=== PATIENT | female | born 2000 | race Caucasian/White ===

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

== ENCOUNTER 2018-08-02 16:43 | Emergency (ER) | payer BC ==
--- NOTE | 2018-08-02 19:26 | ER Document Report ---
ED Neck/Back Problem - General Chief Complaint: Back Pain Stated Complaint: BACK PAIN Time Seen by Provider: 08/02/18 17:37 Mode of Arrival: Ambulatory Information source: Patient Notes: 18-year-old female presented to ED for complaint of bilateral flank pain with pain with any movement. Stated she could hardly walk but was moving around freely in the bed rolling around jumped up when I asked her could she sit on the side of the bed. Patient states is been hurting since yesterday. She states she did have some discomfort with urination. Patient alert oriented respirations regular and unlabored speaking in full sentences walks with a even steady gait. TRAVEL OUTSIDE OF THE [place] IN LAST 30 DAYS: No - HPI Patient complains to provider of: Pain - Bilateral flank. No: Injury Onset: Yesterday Onset: Gradual Timing: Still present Quality of pain: Achy, Cramping Severity: Severe Pain Level: 5 Recent injury: No Associated symptoms: Other - Bilateral flank pain Exacerbated by: Movement of neck, Movement of trunk, Sitting position Relieved by: Nothing Similar symptoms previously: Yes Recently seen / treated by doctor: No - Related Data Allergies/Adverse Reactions: No Known Allergies Allergy (Unverified 10/05/16 01:44) Past Medical History - General Information source: Patient - Social History Smoking Status: Current Every Day Smoker Cigarette use (# per day): Yes - Pack per day Chew tobacco use (# tins/day): No Smoking Education Provided: Yes - 4 minutes Frequency of alcohol use: None Drug Abuse: Marijuana 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 Lives with: Friend Family History: Reviewed & Not Pertinent Patient has suicidal ideation: No Patient has homicidal ideation: No - Past Medical History Cardiac Medical History: Reports: None Pulmonary Medical History: Reports: None EENT Medical History: Reports: None Neurological Medical History: Reports: None Endocrine Medical History: Reports: None Renal/ Medical History: Reports: None Malignancy Medical History: Reports: None GI Medical History: Reports: None Musculoskeletal Medical History: Reports None Skin Medical History: Reports None Psychiatric Medical History: Reports: None Traumatic Medical History: Reports: None Infectious Medical History: Reports: None Surgical Hx: Negative Past Surgical History: Reports: None - Immunizations Immunizations up to date: Yes Hx Diphtheria, Pertussis, Tetanus Vaccination: Yes Review of Systems - Review of Systems Constitutional: No symptoms reported EENT: No symptoms reported Cardiovascular: No symptoms reported Respiratory: No symptoms reported Gastrointestinal: No symptoms reported Genitourinary: Dysuria, Frequency, Flank pain, Urgency Female Genitourinary: No symptoms reported Musculoskeletal: No symptoms reported Skin: No symptoms reported Hematologic/Lymphatic: No symptoms reported Neurological/Psychological: No symptoms reported -: Yes All other systems reviewed and negative Physical Exam - Vital signs Vitals: Temp Pulse Resp BP Pulse Ox 98.8 F 103 H 16 130/72 H 97 08/02/18 16:55 08/02/18 16:55 08/02/18 16:55 08/02/18 16:55 08/02/18 16:55 Interpretation: Normal - General General appearance: Appears well, Alert - HEENT Head: Normocephalic, Atraumatic Eyes: Normal Pupils: PERRL - Respiratory Respiratory status: No respiratory distress Chest status: Nontender Breath sounds: Normal Chest palpation: Normal - Cardiovascular Rhythm: Regular Heart sounds: Normal auscultation Murmur: No - Abdominal Inspection: Normal Distension: No distension Bowel sounds: Normal Tenderness: Tender - Suprapubic Organomegaly: No organomegaly - Back Back: Normal, Tender, CVA tenderness - Bilateral. No: Deformity/step-off, Vertebra tenderness, Scars, Scoliosis, Wounds - Extremities General upper extremity: Normal inspection, Nontender, Normal color, Normal ROM, Normal temperature General lower extremity: Normal inspection, Nontender, Normal color, Normal ROM, Normal temperature, Normal weight bearing. No: Douglas's sign - Neurological Neuro grossly intact: Yes Cognition: Normal Orientation: AAOx4 Rice Coma Scale Eye Opening: Spontaneous Rosalia Coma Scale Verbal: Oriented Rice Coma Scale Motor: Obeys Commands Rice Coma Scale Total: 15 Speech: Normal Motor strength normal: LUE, RUE, LLE, RLE Sensory: Normal - Psychological Associated symptoms: Normal affect, Normal mood - Skin Skin Temperature: Warm Skin Moisture: Dry Skin Color: Normal Course - Vital Signs Vital signs: Temp Pulse Resp BP Pulse Ox 98.8 F 103 H 16 130/72 H 97 08/02/18 16:55 08/02/18 16:55 08/02/18 16:55 08/02/18 16:55 08/02/18 16:55 Discharge - Discharge Clinical Impression: UTI (urinary tract infection) Qualifiers: Urinary tract infection type: acute cystitis Hematuria presence: without hematuria Qualified Code(s): N30.00 - Acute cystitis without hematuria Condition: Stable Disposition: HOME, SELF-CARE Instructions: Family Physicians / Practices Additional Instructions: URINARY TRACT INFECTION: Your evaluation indicates that you have a urinary tract infection. This is due to germs growing in the bladder. This is a common problem. This infection usually responds quickly to antibiotics. Your antibiotic should be taken exactly as prescribed. Drink plenty of fluids -- three to four quarts a day. Occasionally, a bladder anesthetic will be prescribed to help stop the feeling of urgency until the antibiotic has a chance to clear the infection. This may cause your urine to be dark orange. Certain urine infections require a culture. If the doctor obtained a culture, the results will be back in two days. You should call to see if a change in treatment is needed. A repeat urinalysis after you finish treatment is often recommended. The physician will let you know if further testing is required. Call the doctor if you develop fever, chills, flank pain, inability to urinate, or blood in the urine. ANTIBIOTIC THERAPY: You have been given an antibiotic prescription. It's important that you take all the medication, unless instructed otherwise by your physician. Failure to complete the entire course can result in relapse of your condition. Common side effects of antibiotics include nausea, intestinal cramping, or diarrhea. Women may develop vaginal yeast infections, and babies can get yeast (thrush) in the mouth following the use of antibiotics. Contact your physician if you develop significant side effects from this medication. Allergy to this antibiotic can result in hives, wheezing, faintness, or itching. If symptoms of allergy occur, stop the medication and call the doctor. NITROFURANTOIN (MACRODANTIN, MACROBID): You have received a prescription for nitrofurantoin (Macrodantin). This antibiotic is used for urinary tract infections. Women who are or nursing should notify the physician before taking this medicine. If you have ever had a problem caused by this medication in the past, be sure the physician is aware of it. Common side effects of this medicine include nausea, vomiting, or decreased appetite. Notify your physician if these side effects become severe. Immediately stop this medicine and call the physician if you develop cough, shortness of breath, chest pain, weakness, jaundice (yellow color of the skin and whites of the eyes), or a skin rash. Acetaminophen Acetaminophen may be taken for pain relief or fever control. It's much safer than aspirin, offering a wider range of "safe" dosages. It is safe during . Some brand names are Tylenol, Panadol, Datril, Anacin 3, Tempra, and Liquiprin. Acetaminophen can be repeated every four hours. The following are maximum recommended dosages: WEIGHT Dose Drops Elixir Chewable(80mg) (LBS.) drprs=droppers tsp=teaspoon 6 40 mg .4 ml (1/2) 6-11 80 mg .8 ml (full) 1/2 tsp 1 tab 12-16 120 mg 1 1/2 drprs 3/4 tsp 1 1/2 tabs 17-23 160 mg 2 drprs 1 tsp 2 tabs 24-30 240 mg 3 drprs 1 1/2 tsp 3 tabs 30-35 320 mg 2 tsp 4 tabs 36-41 360 mg 2 1/4 tsp 4 1/2 tabs 42-47 400 mg 2 1/2 tsp 5 tabs 48-53 480 mg 3 tsp 6 tabs 54-59 520 mg 3 1/4 tsp 6 1/2 tabs 60-64 560 mg 3 1/2 tsp 7 tabs 65-70 600 mg 3 3/4 tsp 7 1/2 tabs 71-76 640 mg 4 tsp 8 tabs 77-82 720 mg 4 1/2 tsp 9 tabs 83-88 800 mg 5 tsp 10 tabs >89 pounds or adults 650 mg to 900 mg Acetaminophen can be repeated every four hours. Maximum daily dose not to exceed 4000 mg. These maximum recommended dosages are slightly higher than the dosages written on the product container, but these dosages are very safe and well below the toxic dosage for acetaminophen. Ibuprofen Ibuprofen is an excellent, safe drug for pain control. In addition, it has potent antiinflammatory effects which are beneficial, especially in the treatment of injuries, arthritis, or tendonitis. It's best to take ibuprofen with food. Persons with ulcer disease or allergy to aspirin should notify their physician of this before taking ibuprofen. Take the medication exactly as prescribed. Don't take additional doses unless instructed to do so by your doctor. If you develop wheezing, shortness of breath, hives, faintness, stomach pain, vomiting, or dark black stools, return for re-evaluation at once. FOLLOW-UP CARE: If you have been referred to a physician for follow-up care, call the physicians office for an appointment as you were instructed or within the next two days. If you experience worsening or a significant change in your symptoms, notify the physician immediately or return to the Emergency Department at any time for re-evaluation. Prescriptions: Nitrofurantoin/Nitrofuran Mac [Macrobid 100 mg Capsule] 1 tab PO BID #14 capsule Forms: Elevated Blood Pressure, Smoking Cessation Education, Return to Work
[2018-08-02 19:36] VITALS: BP 108/65
[2018-08-02 19:46] LABS: APPEARANCE,URINE SLIGHTLY-CLOUDY; BILIRUBIN,URINE NEGATIVE (NEGATIVE); COLOR,URINE YELLOW; GLUCOSE, URINE NEGATIVE (NEGATIVE); KETONES,URINE NEGATIVE (NEGATIVE); LEUKOCYTE ESTERASE,URINE TRACE (NEGATIVE); NITRITE,URINE POSITIVE (NEGATIVE); PROTEIN,URINE NEGATIVE (NEGATIVE); URINE SPECIFIC GRAVITY 1.017; UROBILINOGEN,URINE NEGATIVE mg/dL (<2.0)
== END 2018-08-02 19:36 | disposition home or self-care (01) ==
LOC: ER 16:43
DX: N30.00 Acute cystitis without hematuria (principal); F17.210 Nicotine dependence, cigarettes, uncomplicated; Z71.6 Tobacco abuse counseling; F12.10 Cannabis abuse, uncomplicated
CPT/HCPCS: 81001; 81025; 87086; 87088; 87186; 99283; 99406

== ENCOUNTER 2019-01-04 15:48 | Observation (INO) | payer BC ==
[2019-01-04 16:47] LABS: ABSOLUTE BASOPHILS # (AUTO) 0.1 10^3/uL (0.0-0.2); ABSOLUTE EOSINOPHILS # (AUTO) 0.1 10^3/uL (0.0-0.6); ABSOLUTE LYMPHOCYTES (AUTO) 1.9 10^3/uL (0.5-4.7); ABSOLUTE MONOCYTES (AUTO) 0.7 10^3/uL (0.1-1.4); BASOPHILS % (AUTO) 0.6 % (0-2); EOSINOPHILS % (AUTO) 1.3 % (0-6); HEMATOCRIT 33.4 % (36.0-47.0); HEMOGLOBIN 11.4 g/dL (12.0-15.5); LYMPHOCYTES % (AUTO) 16.3 % (13-45); MEAN CORPUSCULAR HEMOGLOBIN 29.6 pg (27.0-33.4); MEAN CORPUSCULAR HGB CONC 34.2 g/dL (32.0-36.0); MEAN CORPUSCULAR VOLUME 87 fl (80-97); MONOCYTES % (AUTO) 5.7 % (3-13); PLATELET COUNT 242 10^3/uL (150-450); RED BLOOD COUNT 3.86 10^6/uL (3.72-5.28); RED CELL DISTRIBUTION WIDTH 14.3 % (11.5-14.0); SEGMENTED NEUTROPHILS % (AUTO) 76.1 % (42-78); TOTAL CELLS COUNTED % (AUTO) 100 %; WHITE BLOOD COUNT 11.9 10^3/uL (4.0-10.5)
[2019-01-04] MEDS: RINGERS SOLUTION,LACTATED 1,000 ML IV PRN (17:44)
[2019-01-04] MEDS: CEFTRIAXONE 1 GM/D5W RTU 1 GM/50 ML RTUPB IV SCH (17:44)
[2019-01-04] MEDS: PRENATAL VITAMIN W DHA CAPSULE PO SCH (17:44)
[2019-01-04 18:29] LABS: APPEARANCE,URINE CLOUDY; BILIRUBIN,URINE NEGATIVE (NEGATIVE); COLOR,URINE AMBER; GLUCOSE, URINE NEGATIVE (NEGATIVE); KETONES,URINE TRACE mg/dL (NEGATIVE); LEUKOCYTE ESTERASE,URINE SMALL (NEGATIVE); NITRITE,URINE POSITIVE (NEGATIVE); PROTEIN,URINE NEGATIVE (NEGATIVE)
[2019-01-04] MEDS: ACETAMINOPHEN 325 MG TABLET PO PRN (20:50)
[2019-01-05] MEDS: CEFTRIAXONE 1 GM/D5W RTU 1 GM/50 ML RTUPB IV SCH ×2 (05:18→17:59)
--- NOTE | 2019-01-05 10:06 | PDOC PROGRESS REPORT ---
Subjective Progress Note for:: 01/05/19 Subjective:: She states she is feeling much better. Reason For Visit: PYLONEPHRITIS Physical Exam - Physical Exam Vital Signs: Temp Pulse Resp BP Pulse Ox 98.1 F 66 12 109/62 100 01/05/19 07:37 01/05/19 07:37 01/05/19 07:37 01/05/19 07:37 01/05/19 07:37 Intake & Output 01/04/19 01/05/19 01/06/19 06:59 06:59 06:59 Intake Total 50 Output Total 200 Balance -150 Weight 77.7 kg General appearance: PRESENT: no acute distress, well-developed, well-nourished Musculoskeletal exam: PRESENT: other - Her CVA tenderness on the right is much improved from yesterday's exam Result Laboratory Results: 01/04/19 16:40 01/04/19 01/04/19 16:40 17:59 WBC 11.9 H RBC 3.86 Hgb 11.4 L Hct 33.4 L MCV 87 MCH 29.6 MCHC 34.2 RDW 14.3 H Plt Count 242 Seg Neutrophils % 76.1 Urine Color LEENA Urine Appearance CLOUDY Urine pH 6.0 Ur Specific [place] 1.020 Urine Protein NEGATIVE Urine Glucose (UA) NEGATIVE Urine Ketones TRACE H Urine Blood NEGATIVE Urine Nitrite POSITIVE H Ur Leukocyte Esterase SMALL H Urine WBC (Auto) 9 Urine RBC (Auto) 2 Impressions: She is day 1 of antibiotics and improved after 2 doses Assessment & Plan - Diagnosis (1) Pyelonephritis affecting in second trimester Is this a current diagnosis for this admission?: Yes - Plan Summary Plan Summary: Plan to continue antibiotics and discharge home after her morning dose of antibiotics tomorrow.
[2019-01-05] MEDS: PRENATAL VITAMIN W DHA CAPSULE PO SCH (10:58)
[2019-01-05] MEDS: RINGERS SOLUTION,LACTATED 1,000 ML IV PRN (10:58)
[2019-01-05] MEDS: ACETAMINOPHEN 325 MG TABLET PO PRN ×2 (11:03→18:01)
[2019-01-06] MEDS ORDERED: CEFAZOLIN 1 GM/D5W RTU 0 GM/0 ML RTUPB IV ONE (06:19)
[2019-01-06] MEDS ORDERED: CEFTRIAXONE 1 GM/D5W RTU 1 GM/50 ML RTUPB IV ONE (06:55)
[2019-01-06] MEDS: CEFTRIAXONE 1 GM/D5W RTU 1 GM/50 ML RTUPB IV SCH (07:10)
[2019-01-06] MEDS: PRENATAL VITAMIN W DHA CAPSULE PO SCH (10:49)
[2019-01-06 11:27] VITALS: BP 117/58
--- NOTE | 2019-01-06 14:55 | PDOC DISCHARGE SUMMARY ---
Final Diagnosis Discharge Date: 01/06/19 - Final Diagnosis (1) Pyelonephritis affecting in second trimester Is this a current diagnosis for this admission?: Yes Discharge Data - Discharge Medication Home Medications: No122/Iron/Folic Acid [ Multi Tablet] 1 tab PO DAILY 10/05/16 Acetaminophen [Tylenol 325 mg Tablet] 975 mg PO Q6HP PRN tablet 01/06/19 Reason(s) for Admission: Other - pyelonephritis Procedures: Ultrasound - Diagnosis Test Laboratory: Temp Pulse Resp BP Pulse Ox 98.2 F 64 18 117/58 L 100 01/06/19 11:14 01/06/19 11:14 01/06/19 11:14 01/06/19 11:14 01/06/19 11:14 01/04/19 16:40 RBC 3.86 Hgb 11.4 L Hct 33.4 L - Discharge information/Instructions Discharge Activity: Other - discussed with patient during rounds Discharge Diet: As Tolerated, Regular Disposition: HOME, SELF-CARE Follow up with: [facility] in: 2, Weeks
== END 2019-01-06 15:30 | disposition home or self-care (01) ==
LOC: 2S 15:48 → INTOOBSV 15:48
PROVIDERS: ADMIT Obstetrics & Gynecology; ATTEND Obstetrics & Gynecology
DX: O23.02 Infections of kidney in pregnancy, second trimester (principal); O99.332 Smoking (tobacco) complicating pregnancy, second trimester; F17.210 Nicotine dependence, cigarettes, uncomplicated
CPT/HCPCS: 36415; 87086; 85025; 87088; 81001; 87186; G0378 ×3; J7120 ×2; J0696 ×3; J3490 ×3; J0690

== ENCOUNTER 2019-06-10 02:30 | Inpatient (IN) | payer BC ==
[2019-06-10] MEDS ORDERED: OXYTOCIN 10 UNIT/ML VIAL ONE (03:02)
[2019-06-10] MEDS ORDERED: MISOPROSTOL 0.2 MG TABLET ONE (03:02)
[2019-06-10] MEDS ORDERED: OXYTOCIN/NORMAL SALINE 0 UNIT/0 ML RTUINJ ONE (03:02)
[2019-06-10] MEDS ORDERED: LIDOCAINE 1% INJ-PF (10 MG/ML) 30 ML SDV ONE (03:02)
[2019-06-10 03:10] LABS: APPEARANCE,URINE SLIGHTLY-CLOUDY; BILIRUBIN,URINE NEGATIVE (NEGATIVE); COLOR,URINE YELLOW; GLUCOSE, URINE NEGATIVE (NEGATIVE); KETONES,URINE NEGATIVE (NEGATIVE); LEUKOCYTE ESTERASE,URINE TRACE (NEGATIVE); NITRITE,URINE NEGATIVE (NEGATIVE); PROTEIN,URINE NEGATIVE (NEGATIVE); URINE SPECIFIC GRAVITY 1.008; UROBILINOGEN,URINE NEGATIVE mg/dL (<2.0)
[2019-06-10] MEDS ORDERED: PROMETHAZINE HCL 25 MG SUPP.RECT PR PRN (03:16)
[2019-06-10] MEDS ORDERED: ACETAMINOPHEN WITH CODEINE #3 TABLET PO PRN (03:16)
[2019-06-10] MEDS ORDERED: ACETAMINOPHEN 650 MG SUPP.RECT PR PRN (03:16)
[2019-06-10] MEDS ORDERED: MEASLES,MUMPS&RUBELLA VACC/PF 0.5 ML VIAL SUBCUT PRN ×2 (03:16→07:30)
[2019-06-10] MEDS ORDERED: DIBUCAINE 1% OINTMENT 28 GM TP PRN (03:16)
[2019-06-10] MEDS ORDERED: PROMETHAZINE HCL 25 MG TABLET PO PRN (03:16)
[2019-06-10] MEDS ORDERED: DIPH/PERTUSS(ACELL)/TETANUS VAC/PF 0.5 ML SYR (>=10YO) IM PRN ×2 (03:16→07:30)
[2019-06-10] MEDS ORDERED: DIPHENHYDRAMINE HCL 25 MG CAPSULE PO PRN (03:16)
[2019-06-10] MEDS ORDERED: PROMETHAZINE HCL INJ 25 MG/1 ML VIAL IV PRN (03:16)
[2019-06-10] MEDS ORDERED: NA PHOS,M-B/NA PHOS,DI-BA (ADULT) 133 ML ENEMA PR PRN (03:16)
[2019-06-10] MEDS ORDERED: OXYTOCIN/NORMAL SALINE 20 UNIT/1,000 ML RTUINJ IV PRN (03:16)
[2019-06-10] MEDS ORDERED: BENZOCAINE/MENTHOL AEROSOL SPRAY 56 ML TOP PRN (03:16)
[2019-06-10] MEDS ORDERED: MAGNESIUM HYDROXIDE SUSP 30 ML UDCUP PO PRN (03:16)
[2019-06-10] MEDS ORDERED: PSEUDOEPHEDRINE HCL 30 MG TABLET PO PRN (03:16)
[2019-06-10] MEDS ORDERED: GLYCERIN/WITCH HAZEL LEAF 1 EACH MED..WIPE TP PRN (03:16)
[2019-06-10] MEDS ORDERED: ZOLPIDEM TARTRATE 5 MG TABLET PO PRN (03:16)
--- NOTE | 2019-06-10 03:22 | Admission Physical ---
Datetime Report Generated by CPN: 06/10/2019 03:22 CURRENT ADMISSION Chief Complaint: Uterine Contractions Admit Impression : Term, Intrauterine ; Active Labor; Ruptured Membranes Admit Plan: Admit to Unit; Initiate Labor Protocol ALLERGIES Medication Allergies: No Medication Allergies: No Known Allergies (10/05/2016) Latex: No Latex Allergies OBSTETRICAL HISTORY EDC: 06/15/2019 00:00 : 2 Para: 1 SEE RECORDS Alcohol: No Marijuana : No Cocaine: No Other Illicit Drugs: No Cigarettes: Current Everyday Smoker. [id number] PHYSICAL EXAM General: Normal HEENT: Normal Neurologic: Normal Thyroid: Normal Heart: Normal Lungs: Normal Breast: Normal Back: Normal Abdomen: Normal Genitourinary Exam: Normal Extremities: Normal DTRs: Normal Pelvic Type: Adequate Vital Signs: Reviewed VAGINAL EXAM Dilatation: 10 Effacement: 100 Station: 2 Contraction Comments: Regular MEMBRANES Membranes: Ruptured Amniotic Fluid Color: Clear FETUS A EGA: 39.2 Monitoring: External US FHR- Baseline: 125 Variability: Moderate 6-25bpm Accelerations: 15X15 Decelerations: None FHR Category: Category I Presentation: Vertex Admit Comment: at approx 39.2 wks EGA in active labor -Admit to LDR -NPO and IVFs -CEFM and toco -GBS negative -Cervix C/C/+2 -anticipate PLANS FOR LABOR AND DELIVERY Labor and Delivery: None Pain Management: Epidural Feeding Preference: Breast INFORMED CONSENT Informed Consent Obtained: Vaginal Delivery; Risks, Benefits and Alternatives Discussed Signature: with User ID: [email or web address] : with User ID: [email or web address]
[2019-06-10 03:29] LABS: URINE AMPHETAMINES SCREEN NEGATIVE; URINE BARBITURATES SCREEN NEGATIVE; URINE BENZODIAZEPINES SCREEN NEGATIVE; URINE COCAINE SCREEN NEGATIVE; URINE MARIJUANA (THC) SCREEN NEGATIVE; URINE METHADONE SCREEN NEGATIVE; URINE PHENCYCLIDINE SCREEN NEGATIVE
[2019-06-10] MEDS ORDERED: ACETAMINOPHEN WITH CODEINE #3 TABLET ONE (03:47)
[2019-06-10] MEDS: ACETAMINOPHEN WITH CODEINE #3 TABLET PO PRN ×2 (03:50→17:10)
[2019-06-10 03:58] LABS: ABSOLUTE EOSINOPHILS # (AUTO) 0.1 10^3/uL (0.0-0.6); ABSOLUTE LYMPHOCYTES (AUTO) 2.1 10^3/uL (0.5-4.7); ABSOLUTE MONOCYTES (AUTO) 0.8 10^3/uL (0.1-1.4); ABSOLUTE NEUT (AUTO) 12.4 10^3/uL (1.7-8.2); BASOPHILS % (AUTO) 0.2 % (0-2); EOSINOPHILS % (AUTO) 0.9 % (0-6); HEMATOCRIT 33.7 % (36.0-47.0); HEMOGLOBIN 11.5 g/dL (12.0-15.5); LYMPHOCYTES % (AUTO) 13.9 % (13-45); MEAN CORPUSCULAR HEMOGLOBIN 29.3 pg (27.0-33.4); MEAN CORPUSCULAR HGB CONC 34.3 g/dL (32.0-36.0); MEAN CORPUSCULAR VOLUME 86 fl (80-97); MONOCYTES % (AUTO) 4.9 % (3-13); PLATELET COUNT 218 10^3/uL (150-450); RED BLOOD COUNT 3.93 10^6/uL (3.72-5.28); RED CELL DISTRIBUTION WIDTH 15.1 % (11.5-14.0); SEGMENTED NEUTROPHILS % (AUTO) 80.1 % (42-78); TOTAL CELLS COUNTED % (AUTO) 100 %; WHITE BLOOD COUNT 15.4 10^3/uL (4.0-10.5)
[2019-06-10] MEDS ORDERED: METHYLERGONOVINE MALEATE 0.2 MG TABLET ONE ×2 (04:43→11:55)
[2019-06-10] MEDS: METHYLERGONOVINE MALEATE 0.2 MG TABLET PO SCH ×3 (04:49→17:12)
--- NOTE | 2019-06-10 05:05 | Delivery Summary ---
Del Sum A-C Datetime Report Generated by CPN: 06/10/2019 05:05 DELIVERY PERSONNEL DELIVERY PERSONNEL: [id number] Delivery Doctor:: Shirley Acuna MD Labor and Delivery Nurse:: Alla Elder RNdirector of labor relations Nurse:: Karie Orlando RN Nursery Nurse:: Yadira Jimenez RN MSN Pharmacy Intern/TOUR SALES REPRESENTATIVE: Olga Raimundo, TRAFFIC LINE PAINTER MATERNAL INFORMATION Delivery Anesthesia: None Medications After Delivery: Other-Please Comment Meds After Delivery Comment: 20 units pitocin IM Delivery QBL: 50 Maternal Complications: Precipitous Labor (<3hrs) Provider Comments: Called to patients room as she arrived to floor at COmplete/Complete and +2. She had urge to push. Pushed through one contraction and a viable female was delivered over an intact perineum. Apagars of 8/9 at one and 5 minutes respectfully. placed skin to skin with Mother after cord doubly clamped and cut. Both mother and infant stable. LABOR SUMMARY EDC: 06/15/2019 00:00 No. Babies in Womb: 1 Attempted: No Labor Anesthesia: None LABOR INFORMATION Reason for Induction: Not Applicable Onset of Labor: 06/10/2019 01:30 Complete Dilatation: 06/10/2019 03:00 Oxytocin: N/A Group B Beta Strep: Negative Antibiotics # of Doses: 0 Steroids Given: None Reason Steroids Not Administered: Not Applicable MEMBRANES Membranes Rupture Method: Spontaneous Rupture of Membranes: 06/10/2019 01:30 Length of Rupture (hr): 1.58 Amniotic Fluid Color: Clear Amniotic Fluid Amount: Small Amniotic Fluid Odor: Normal STAGES OF LABOR Stage 1 hr: 1 Stage 1 min: 30 Stage 2 hr: 0 Stage 2 min: 5 Stage 3 hr: 0 Stage 3 min: 5 Total Time in Labor hr: 1 Total Time in Labor min: 40 VAGINAL DELIVERY Episiotomy: None Laceration #1: None Laceration Extension #1: N/A Laceration Repair: Not Applicable Sponge Count Correct: Yes Sharps Count Correct: Yes CSECTION DELIVERY Primary Indication: N/A Secondary Indication: N/A CSection Incidence: N/A Labor: N/A Elective: N/A CSection Incision: N/A BABY A INFORMATION Infant Delivery Date/Time: 06/10/2019 03:05 Method of Delivery: Vaginal Born in Route : No : N/A Forceps: N/A Vacuum Extraction: N/A Shoulder Dystocia : No PRESENTATION/POSITION BABY A Presentation: Cephalic Cephalic Presentation: Vertex Vertex Position: Left Occipital Anterior Breech Presentation: N/A PLACENTA INFORMATION BABY A Placenta Delivery Time : 06/10/2019 03:10 Placenta Method of Delivery: Spontaneous Placenta Status: Delivered SCORES BABY A Heart Rate 1 min: >100 bpm Resp Effort 1 min: Good Cry Reflex Irritability 1 min: Cough or Sneeze or Pulls Away Muscle Tone 1 min: Active Motion Color 1 min: Blue/Pale Resuscitation Effort 1 min: Tactile Stimulation SCORE 1 MIN: 8 Heart Rate 5 min: >100 bpm Resp Effort 5 min: Good Cry Reflex Irritability 5 min: Cough or Sneeze or Pulls Away Muscle Tone 5 min: Active Motion Color 5 min: Body [place], Extremities Blue Resuscitation Effort 5 min: Tactile Stimulation SCORE 5 MIN: 9 INFORMATION BABY A Gestational Age at Delivery: 39.2 Gestational Status: Full Term- 39- 40.6 Weeks Infant Outcome : Liveborn Infant Condition : Stable Infant Sex: Female IDENTIFICATION BABY A Verification Date/Time: 06/10/2019 03:18 ID Band Number: [id number] Mother's Name Verified: Yes Infant RN Verifying : Shakir Elder, RN and Mark Orlando, RN WEIGHT/LENGTH BABY A Birthweight (gm): 3273 Weight (lb): 7 Infant Weight (oz): 3 Infant Length (in): 19.00 Length (cm): 48.26 CORD INFORMATION BABY A No. Cord Vessels: 3 Nuchal Cord : N/A Cord Blood Taken: Yes-For Eval (Mom's Blood Type - or O+) Suction: Mouth ASSESSMENT BABY A Complications: None Physical Findings at Delivery: Within Normal Limits Respirations: Appears Normal Skin to Skin: Yes Aviation Project Manager/ALS Called : No Infant Care By: JOAQUIM Laureano Transferred To: [facility] SIGNATURES Signature: with User ID: [email or web address] : with User ID: [email or web address]
[2019-06-10] MEDS: IBUPROFEN 800 MG TABLET PO SCH ×4 (05:33→22:03)
[2019-06-10] MEDS ORDERED: INFLUENZA QUAD (6MOS+) 2019-20 VAC 0.5 ML SYR IM ONE (07:06)
[2019-06-10] MEDS: DOCUSATE SODIUM 100 MG CAPSULE PO SCH ×2 (09:14→17:12)
[2019-06-10] MEDS: SENNOSIDES/DOCUSATE 8.6-50 MG 1 EACH TABLET PO SCH (09:14)
[2019-06-10] MEDS: PRENATAL VITAMIN W DHA CAPSULE PO SCH (09:14)
[2019-06-10] MEDS: FERROUS SULFATE 325 MG TABLET PO SCH ×2 (09:14→17:12)
[2019-06-10] MEDS: FAMOTIDINE 20 MG TABLET PO SCH ×2 (09:14→22:04)
--- NOTE | 2019-06-10 09:26 | PDOC PROGRESS REPORT ---
Subjective-OB Progress Note for:: 06/10/19 Subjective: Doing well, sleeping on rounds, , ambulating, voiding, mod bleeding Physical Exam (OB) Vital Signs: Temp Pulse Resp BP Pulse Ox 98.4 F 57 L 16 121/55 L 100 06/10/19 08:00 06/10/19 08:00 06/10/19 08:00 06/10/19 08:00 06/10/19 08:00 Intake & Output 06/09/19 06/10/19 06/11/19 06:59 06:59 06:59 Intake Total 250 Balance 250 Weight 86.5 kg - PIH/Pre-Eclampsia Clonus: Negative Headache: Absent Epigastric Pain: No Visual Changes: No - Lochia Lochia Amount: Small 10-25 ml Lochia Color: Rubra/Red - Abdomen Description: Soft Hernia Present: No Fundal Description: Firm, Midline Fundal Height: u/u - u/2 Objective-Diagnostic Laboratory: 06/10/19 03:29 06/10/19 06/10/19 06/10/19 02:40 03:29 03:29 WBC 15.4 H RBC 3.93 Hgb 11.5 L Hct 33.7 L MCV 86 MCH 29.3 MCHC 34.3 RDW 15.1 H Plt Count 218 Seg Neutrophils % 80.1 H Urine Color YELLOW Urine Appearance SLIGHTLY-CLOUDY Urine pH 7.0 Ur Specific [place] 1.008 Urine Protein NEGATIVE Urine Glucose (UA) NEGATIVE Urine Ketones NEGATIVE Urine Blood MODERATE H Urine Nitrite NEGATIVE Ur Leukocyte Esterase TRACE H Blood Type A NEGATIVE Antibody Screen POSITIVE Assessment and Plan(PN) - Assessment and Plan (1) Precipitous delivery Is this a current diagnosis for this admission?: Yes (2) Rh negative status during Qualifiers: Trimester: first trimester Qualified Code(s): O26.891 - Other specified related conditions, first trimester; Z67.91 - Unspecified blood type, Rh negative Is this a current diagnosis for this admission?: Yes (3) Growth lag in Is this a current diagnosis for this admission?: Yes (4) Marijuana use Is this a current diagnosis for this admission?: Yes (5) History of cutting Is this a current diagnosis for this admission?: Yes - Time Spent with Patient Time with patient: Less than 15 minutes Medications reviewed and adjusted accordingly: Yes
[2019-06-11] MEDS ORDERED: METHYLERGONOVINE MALEATE 0.2 MG TABLET ONE ×2 (00:22→04:59)
[2019-06-11] MEDS: METHYLERGONOVINE MALEATE 0.2 MG TABLET PO SCH ×3 (00:27→14:03)
[2019-06-11] MEDS: IBUPROFEN 800 MG TABLET PO SCH ×2 (05:10→14:02)
[2019-06-11 06:44] LABS: HEMATOCRIT 35.6 % (36.0-47.0); HEMOGLOBIN 12.1 g/dL (12.0-15.5); MEAN CORPUSCULAR HEMOGLOBIN 29.1 pg (27.0-33.4); MEAN CORPUSCULAR HGB CONC 33.9 g/dL (32.0-36.0); MEAN CORPUSCULAR VOLUME 86 fl (80-97); PLATELET COUNT 215 10^3/uL (150-450); RED BLOOD COUNT 4.15 10^6/uL (3.72-5.28); RED CELL DISTRIBUTION WIDTH 15.2 % (11.5-14.0); WHITE BLOOD COUNT 14.4 10^3/uL (4.0-10.5)
[2019-06-11 08:20] VITALS: BP 100/50
[2019-06-11] MEDS: FAMOTIDINE 20 MG TABLET PO SCH (09:40)
[2019-06-11] MEDS: FERROUS SULFATE 325 MG TABLET PO SCH ×2 (09:40→18:04)
[2019-06-11] MEDS: SENNOSIDES/DOCUSATE 8.6-50 MG 1 EACH TABLET PO SCH (09:40)
[2019-06-11] MEDS: PRENATAL VITAMIN W DHA CAPSULE PO SCH (09:40)
[2019-06-11] MEDS: DOCUSATE SODIUM 100 MG CAPSULE PO SCH ×2 (09:40→18:04)
--- NOTE | 2019-06-11 11:27 | PDOC DISCHARGE SUMMARY ---
Impression - Admit/DC Date/PCP Admission Date/Primary Care Provider: 06/10/19 03:02 Discharge Date: 06/11/19 - PP Day #1, pt desires early discharge home, doing well, , A negative, needs Rhogam today - Discharge Diagnosis (1) Precipitous delivery Is this a current diagnosis for this admission?: Yes (2) Rh negative status during Is this a current diagnosis for this admission?: Yes (3) Delivery normal Is this a current diagnosis for this admission?: Yes (4) Depression with anxiety Is this a current diagnosis for this admission?: Yes (5) Growth lag in Is this a current diagnosis for this admission?: Yes (6) Marijuana use Is this a current diagnosis for this admission?: Yes - Additional Information Resuscitation Status: Full Code Discharge Diet: As Tolerated, Regular Discharge Activity: Activity As Tolerated, No Lifting Over 10 Pounds, Pelvic Rest Referrals: [facility] [Provider Group] Prescriptions: Ibuprofen [Motrin 800 mg Tablet] 800 mg PO Q8 #60 tablet Home Medications: No122/Iron/Folic Acid [ Multi Tablet] 1 tab PO DAILY 10/05/16 Ibuprofen [Motrin 800 mg Tablet] 800 mg PO Q8 #60 tablet 06/11/19 HPI Reason(s) for Admission: Onset of Labor Procedures: NST, Ultrasound Intrapartum Procedure(s): Spontaneous Vaginal Delivery Results Laboratory Results: WBC 14.4 10^3/uL (4.0-10.5) H 06/11/19 06:34 RBC 4.15 10^6/uL (3.72-5.28) 06/11/19 06:34 Hgb 12.1 g/dL (12.0-15.5) 06/11/19 06:34 Hct 35.6 % (36.0-47.0) L 06/11/19 06:34 MCV 86 fl (80-97) 06/11/19 06:34 MCH 29.1 pg (27.0-33.4) 06/11/19 06:34 MCHC 33.9 g/dL (32.0-36.0) 06/11/19 06:34 RDW 15.2 % (11.5-14.0) H 06/11/19 06:34 Plt Count 215 10^3/uL (150-450) 06/11/19 06:34 Lymph % (Auto) 13.9 % (13-45) 06/10/19 03:29 [place] % (Auto) 4.9 % (3-13) 06/10/19 03:29 Eos % (Auto) 0.9 % (0-6) 06/10/19 03:29 Baso % (Auto) 0.2 % (0-2) 06/10/19 03:29 Absolute Neuts (auto) 12.4 10^3/uL (1.7-8.2) H 06/10/19 03:29 Absolute Lymphs (auto) 2.1 10^3/uL (0.5-4.7) 06/10/19 03:29 Absolute Monos (auto) 0.8 10^3/uL (0.1-1.4) 06/10/19 03:29 Absolute Eos (auto) 0.1 10^3/uL (0.0-0.6) 06/10/19 03:29 Absolute Basos (auto) 0.0 10^3/uL (0.0-0.2) 06/10/19 03:29 Seg Neutrophils % 80.1 % (42-78) H 06/10/19 03:29 Urine Color YELLOW 06/10/19 02:40 Urine Appearance SLIGHTLY-CLOUDY 06/10/19 02:40 Urine pH 7.0 (5.0-9.0) 06/10/19 02:40 Ur Specific [place] 1.008 06/10/19 02:40 Urine Protein NEGATIVE mg/dL (NEGATIVE) 06/10/19 02:40 Urine Glucose (UA) NEGATIVE mg/dL (NEGATIVE) 06/10/19 02:40 Urine Ketones NEGATIVE mg/dL (NEGATIVE) 06/10/19 02:40 Urine Blood MODERATE (NEGATIVE) H 06/10/19 02:40 Urine Nitrite NEGATIVE (NEGATIVE) 06/10/19 02:40 Urine Bilirubin NEGATIVE (NEGATIVE) 06/10/19 02:40 Urine Urobilinogen NEGATIVE mg/dL (<2.0) 06/10/19 02:40 Ur Leukocyte Esterase TRACE (NEGATIVE) H 06/10/19 02:40 Urine Ascorbic Acid NEGATIVE (NEGATIVE) 06/10/19 02:40 Membranes Rupture POSITIVE (NEGATIVE) H 06/10/19 02:40 Urine Opiates Screen UNCONFIRMED POSITIVE 06/10/19 02:40 Urine Methadone Screen NEGATIVE 06/10/19 02:40 Ur Barbiturates Screen NEGATIVE 06/10/19 02:40 Ur Phencyclidine Scrn NEGATIVE 06/10/19 02:40 Ur Amphetamines Screen NEGATIVE 06/10/19 02:40 U Benzodiazepines Scrn NEGATIVE 06/10/19 02:40 Urine Cocaine Screen NEGATIVE 06/10/19 02:40 U Marijuana (THC) Screen NEGATIVE 06/10/19 02:40 RPR NONREACTIVE (NONREACTIVE) 06/10/19 03:29 Blood Type A NEGATIVE 06/11/19 06:34 Antibody Screen POSITIVE 06/10/19 03:29 Antibody Identification RHOGAM INDUCED ANTI-D 06/10/19 03:29 Screen NEGATIVE 06/11/19 06:34 Plan Plan of Treatment: d/c home this evening, f/up with [facility] in 4 wks
== END 2019-06-11 20:28 | disposition home or self-care (01) | DRG 806 ==
LOC: LC 02:30 → LR 03:02 → 2S 05:59
PROVIDERS: ADMIT Obstetrics & Gynecology; ATTEND Obstetrics & Gynecology
PROC: 10E0XZZ Delivery of Products of Conception, External Approach (ICD-10-PCS; principal; 2019-06-10)
PROC: 3E02340 Introduction of Influenza Vaccine into Muscle, Percutaneous Approach (ICD-10-PCS; 2019-06-11)
PROC: 3E0234Z Introduction of Serum, Toxoid and Vaccine into Muscle, Percutaneous Approach (ICD-10-PCS; 2019-06-11)
DX: O99.344 Other mental disorders complicating childbirth (principal); O99.324 Drug use complicating childbirth; Z37.0 Single live birth; O26.893 Other specified pregnancy related conditions, third trimester; O99.334 Smoking (tobacco) complicating childbirth; F17.210 Nicotine dependence, cigarettes, uncomplicated; F12.90 Cannabis use, unspecified, uncomplicated; O62.3 Precipitate labor; F41.9 Anxiety disorder, unspecified; F32.9 Major depressive disorder, single episode, unspecified; Z3A.39 39 weeks gestation of pregnancy; Z67.91 Unspecified blood type, Rh negative
CPT/HCPCS: 36415; 80307; 81005; 84112; 85025; 85027; 85461; 86592; 86850; 86870; 86900; 86901; 90686; 94760; J2590; J2790; J3490

== ENCOUNTER 2020-03-05 09:32 | Emergency (ER) | payer BC ==
[2020-03-05 10:24] LABS: ABSOLUTE EOSINOPHILS # (AUTO) 0.1 10^3/uL (0.0-0.6); ABSOLUTE LYMPHOCYTES (AUTO) 1.9 10^3/uL (0.5-4.7); ABSOLUTE MONOCYTES (AUTO) 0.5 10^3/uL (0.1-1.4); ABSOLUTE NEUT (AUTO) 9.2 10^3/uL (1.7-8.2); BASOPHILS % (AUTO) 0.2 % (0-2); EOSINOPHILS % (AUTO) 0.7 % (0-6); HEMATOCRIT 38.4 % (36.0-47.0); HEMOGLOBIN 13.5 g/dL (12.0-15.5); LYMPHOCYTES % (AUTO) 16.4 % (13-45); MEAN CORPUSCULAR HEMOGLOBIN 30.1 pg (27.0-33.4); MEAN CORPUSCULAR VOLUME 86 fl (80-97); MONOCYTES % (AUTO) 4.3 % (3-13); PLATELET COUNT 209 10^3/uL (150-450); RED BLOOD COUNT 4.47 10^6/uL (3.72-5.28); RED CELL DISTRIBUTION WIDTH 14.7 % (11.5-14.0); SEGMENTED NEUTROPHILS % (AUTO) 78.4 % (42-78); TOTAL CELLS COUNTED % (AUTO) 100 %; WHITE BLOOD COUNT 11.8 10^3/uL (4.0-10.5)
[2020-03-05 10:31] LABS: APPEARANCE,URINE CLEAR; BILIRUBIN,URINE NEGATIVE (NEGATIVE); COLOR,URINE YELLOW; GLUCOSE, URINE NEGATIVE (NEGATIVE); KETONES,URINE NEGATIVE (NEGATIVE); LEUKOCYTE ESTERASE,URINE MODERATE (NEGATIVE); NITRITE,URINE NEGATIVE (NEGATIVE); PROTEIN,URINE NEGATIVE (NEGATIVE); UROBILINOGEN,URINE NEGATIVE mg/dL (<2.0)
[2020-03-05 10:42] LABS: ALBUMIN 4.1 g/dL (3.5-5.0); ALKALINE PHOSPHATASE 74 U/L (38-126); ANION GAP 12 (5-19); ASPARTATE AMINO TRANSFERASE 19 U/L (14-36); BILIRUBIN,TOTAL 0.8 mg/dL (0.2-1.3); BLOOD UREA NITROGEN 14 mg/dL (7-20); CALCIUM 9.3 mg/dL (8.4-10.2); CARBON DIOXIDE 24 mmol/L (22-30); CHLORIDE 104 mmol/L (98-107); GLUCOSE 94 mg/dL (75-110); POTASSIUM 3.9 mmol/L (3.6-5.0); TOTAL PROTEIN 6.7 g/dL (6.3-8.2)
[2020-03-05] MEDS ORDERED: NORMAL SALINE 1000 ML 1,000 ML IV ONE (10:57)
[2020-03-05] MEDS ORDERED: CEFEPIME 2 GM/D5W RTU 2 GM/50 ML RTUPB IV ONE (10:58)
--- NOTE | 2020-03-05 12:45 | RADIOLOGY REPORT (SQ) ---
EXAM DESCRIPTION: CT ABD/PELVIS WITH IV ONLY IMAGES COMPLETED DATE/TIME: 03/05/2020 12:02 pm REASON FOR STUDY: bilat flank pain/uti COMPARISON: None. TECHNIQUE: CT scan of the abdomen and pelvis performed using helical scanning technique with dynamic intravenous contrast injection. No oral contrast. Images reviewed with lung, soft tissue, and bone windows. Reconstructed coronal and sagittal MPR images reviewed. Delayed images for evaluation of the urinary system also acquired. All images stored on PACS. All CT scanners at this facility use dose modulation, iterative reconstruction, and/or weight based d osing when appropriate to reduce radiation dose to as low as reasonably achievable (ALARA). [facility]: Dose Right [facility]: CareDose [facility]: Dose Right [facility]: Teradose 4D [facility]: Feeding Forward CONTRAST TYPE AND DOSE: contrast/concentration: Isovue 350.00 mmol/ml; Total Contrast Delivered: 90. 0 ml; Total Saline Delivered: 66.5 ml RENAL FUNCTION: None required. The patient is less than 50 years old. RADIATION DOSE: CT Rad equipment meets quality standard of care and radiation dose reduction techniq ues were employed. CTDIvol: 6.6 - 9.3 mGy. DLP: 978 mGy-cm.. LIMITATIONS: None. FINDINGS: LOWER CHEST: No significant findings. No nodules or infiltrates. LIVER: Normal size. No masses. No dilated ducts. SPLEEN: Normal size. No focal lesions. PANCREAS: No masses. No significant calcifications. No adjacent inflammation or peripancreatic fluid collections. Pancreatic duct not dilated. GALLBLADDER: No identified stones by CT criteria. No inflammatory changes to suggest cholecystitis. ADRENAL GLANDS: No significant masses or asymmetry. RIGHT KIDNEY AND URETER: No solid masses. No significant calcifications. No hydronephrosis or hyd roureter. LEFT KIDNEY AND URETER: No solid masses. No significant calcifications. No hydronephrosis or hydr oureter. AORTA AND VESSELS: No aneurysm. No dissection. Renal arteries, SMA, celiac without stenosis. RETROPERITONEUM: No retroperitoneal adenopathy, hemorrhage or masses. BOWEL AND PERITONEAL CAVITY: No masses or inflammatory changes. No free fluid or peritoneal masses. APPENDIX: Normal. PELVIS: Physiologic free fluid in the pelvis. ABDOMINAL WALL: No masses. No hernias. BONES: No significant or acute findings. OTHER: No other significant finding. IMPRESSION: Physiologic free fluid in the pelvis. Otherwise normal study. TECHNICAL DOCUMENTATION: JOB ID: [id number] Quality ID # [id number]: Final reports with documentation of one or more dose reduction techniques (e.g., Au tomated exposure control, adjustment of the mA and/or kV according to patient size, use of iterative reconstruction technique) 2010 [employer]- All Rights Reserved Reading location - IP/workstation name: [email or web address]
--- NOTE | 2020-03-05 13:59 | ER Document Report ---
Entered by SKYE CASTELLON SCRIBE 03/05/20 1055 Acting as scribe for:SVETLANA GERMAIN MD ED General - General Chief Complaint: Flank Pain Stated Complaint: FLANK PAIN Time Seen by Provider: 03/05/20 10:45 Information source: Patient Notes: This 19 year old female patient presents to the emergency department today with complaints of bilateral flank pain. Patient reports history of pyelonephritis last year, states she was diagnosed with bronchitis last week, denies history of kidney stones or surgical history, and is not on any medications. Patient reports N/V, chills, diarrhea and denies a fever. Patient states her last menstrual period was x2 weeks ago and had a negative test last week. TRAVEL OUTSIDE OF THE [place] IN LAST 30 DAYS: No - Related Data Allergies/Adverse Reactions: No Known Allergies Allergy (Unverified 03/05/20 09:43) Past Medical History - General Information source: Patient - Social History Smoking Status: Current Every Day Smoker Cigarette use (# per day): Yes Chew tobacco use (# tins/day): No Frequency of alcohol use: None Drug Abuse: None Family History: Reviewed & Not Pertinent Pulmonary Medical History: Reports: Hx Bronchitis Renal/ Medical History: Denies: Hx Peritoneal Dialysis Psychiatric Medical History: Reports: Hx Depression Surgical Hx: Negative - Immunizations Immunizations up to date: Yes Hx Diphtheria, Pertussis, Tetanus Vaccination: Yes Review of Systems - Review of Systems Constitutional: See HPI, Chills. denies: Fever EENT: No symptoms reported Cardiovascular: No symptoms reported Respiratory: No symptoms reported Gastrointestinal: See HPI, Diarrhea, Nausea, Vomiting Genitourinary: See HPI, Flank pain - bilateral Female Genitourinary: See HPI, Last menstrual period - x2 weeks ago. denies: Musculoskeletal: No symptoms reported Skin: No symptoms reported Hematologic/Lymphatic: No symptoms reported Neurological/Psychological: No symptoms reported -: Yes All other systems reviewed and negative Physical Exam - Vital signs Vitals: Temp Pulse Resp BP Pulse Ox 97.7 F 74 18 134/75 H 99 03/05/20 09:36 03/05/20 09:36 03/05/20 09:36 03/05/20 09:36 03/05/20 09:36 - General General appearance: Appears well, Alert - HEENT Head: Normocephalic, Atraumatic Eyes: Normal Pupils: PERRL - Respiratory Respiratory status: No respiratory distress Chest status: Nontender Breath sounds: Normal Chest palpation: Normal - Cardiovascular Rhythm: Regular Heart sounds: Normal auscultation Murmur: No - Abdominal Inspection: Normal, Other - Soft Distension: No distension Bowel sounds: Normal Tenderness: Nontender - Back Back: CVA tenderness - Right, Other - no left CVA tenderness - Extremities General upper extremity: Normal inspection, Normal ROM General lower extremity: Normal inspection, Normal ROM. No: Edema - Neurological Neuro grossly intact: Yes Cognition: Normal Orientation: AAOx4 [place] Coma Scale Eye Opening: Spontaneous [place] Coma Scale Verbal: Oriented [place] Coma Scale Motor: Obeys Commands [place] Coma Scale Total: 15 Speech: Normal Motor strength normal: LUE, RUE, LLE, RLE Sensory: Normal - Psychological Associated symptoms: Normal affect, Normal mood - Skin Skin Temperature: Warm Skin Moisture: Dry Skin Color: Normal Course - Re-evaluation Re-evalutation: 03/05/20 13:53 Patient reports that her right flank pain has improved. - Vital Signs Vital signs: Temp Pulse Resp BP Pulse Ox 97.7 F 74 18 134/75 H 99 03/05/20 09:36 03/05/20 09:36 03/05/20 09:36 03/05/20 09:36 03/05/20 09:36 03/05/20 13:53 Vital signs stable - Laboratory Result Diagrams: 03/05/20 09:45 03/05/20 09:45 Laboratory results interpreted by me: 03/05/20 03/05/20 09:45 09:45 WBC 11.8 H RDW 14.7 H Absolute Neuts (auto) 9.2 H Seg Neutrophils % 78.4 H Urine Blood SMALL H Ur Leukocyte Esterase MODERATE H 03/05/20 13:54 Urinalysis shows moderate leukocyte esterase small amount of blood present. White blood cell count 11.8. - Diagnostic Test Radiology reviewed: Image reviewed, Reports reviewed Radiology results interpreted by me: 03/05/20 13:54 Abdomen/Pelvis CT 03/05/20 11:00 IMPRESSION: Physiologic free fluid in the pelvis. Otherwise normal study. CT abdomen and pelvis with IV contrast only shows no acute process other than physiological free fluid in the pelvis otherwise a normal study no evidence of hydronephrosis or abscess or obstruction. Discharge - Discharge Clinical Impression: Urinary tract infection Condition: Stable Disposition: HOME, SELF-CARE Instructions: Urinary Tract Infection ([facility]), Urinary Anesthetic Agent ([facility]) Prescriptions: Ciprofloxacin HCl [Cipro 500 mg Tablet] 500 mg PO BID #20 tablet Phenazopyridine HCl [Pyridium 200 mg Tablet] 200 mg PO TID PRN #6 tablet PRN Reason: urinary frequency/pain bladder I personally performed the services described in the documentation, reviewed and edited the documentation which was dictated to the scribe in my presence, and it accurately records my words and actions.
[2020-03-05 14:37] VITALS: BP 114/65
== END 2020-03-05 14:36 | disposition home or self-care (01) ==
LOC: ER 09:32
DX: N39.0 Urinary tract infection, site not specified (principal); R10.9 Unspecified abdominal pain; R11.2 Nausea with vomiting, unspecified; R68.83 Chills (without fever); R19.7 Diarrhea, unspecified; F17.210 Nicotine dependence, cigarettes, uncomplicated
CPT/HCPCS: 99285; 96361; 96365; 36415; 83690; 84703; 85025; 80053; 81001; 74177; J7030; J0692